=== PATIENT | male | born 1945 | race Caucasian/White ===

== ENCOUNTER 2024-12-04 17:55 | Emergency (ER) | payer OTHER, SELFPAY ==
[2024-12-04 18:25] VITALS: BP 141/72
[2024-12-04 21:02] VITALS: BMI 29.7
[2024-12-04 21:06] VITALS: BP 156/79
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
[2024-12-04] MEDS: TORADOL 30 MG IM (21:42)
[2024-12-04] MEDS: PERCOCET 5/325 1 TABLET PO ×2 (21:43→23:23)
[2024-12-04 22:35] VITALS: BP 140/73
[2024-12-04 23:00] VITALS: BP 148/76
== END 2024-12-04 23:52 | disposition home or self-care (01) ==
LOC: EMR 17:55
PROVIDERS: EMERGENCY PHYSICIAN Emergency Medicine; FAMILY PHYSICIAN Family Medicine
DX: M54.50 Low back pain, unspecified (principal); E11.9 Type 2 diabetes mellitus without complications; I10 Essential (primary) hypertension; Z79.02 Long term (current) use of antithrombotics/antiplatelets; Z88.8 Allergy status to other drugs, medicaments and biological substances; Z88.1 Allergy status to other antibiotic agents; Z91.041 Radiographic dye allergy status
CPT/HCPCS: 99284; 96372; 72110